=== PATIENT | female | born 1965 | race Caucasian/White ===

== ENCOUNTER 2022-01-12 15:12 | Outpatient (CLI) | payer MEDICAID, SELFPAY ==
[2022-01-12 21:18] LABS: Chloride* 102 mmol/L (96-114); Potassium* 3.9 mmol/L (3.6-5.1); Sodium* 139 mmol/L (135-149)
[2022-01-12 21:21] LABS: Blood Urea Nitrogen* 15 mg/dL (7-30); Carbon Dioxide* 32 mmol/L (20-32); Creatinine* 0.9 mg/dL (0.5-1.5); Estimated Glomerular Filt Rate 76 ml/min; Glucose* 97 mg/dL (60-115)
[2022-01-12 21:22] LABS: Calcium* 8.7 mg/dL (8.4-10.6)
== END 2022-01-12 15:13 | disposition home or self-care (01) ==
LOC: LKVREF 15:14
PROVIDERS: PCP Physician Assistant Medical; Visit Provider Physician Assistant Medical
DX: Z01.818 Encounter for other preprocedural examination (principal)
CPT/HCPCS: 80048

== ENCOUNTER 2022-11-30 14:14 | Outpatient (CLI) | payer MEDICARE, MEDICAID, SELFPAY | END 2022-11-30 14:15 | disposition home or self-care (01) | PROVIDERS: PCP Physician Assistant Medical; Visit Provider Registered Nurse | DX: M25.531 Pain in right wrist (principal) | CPT/HCPCS: 84550 ==

== ENCOUNTER 2022-12-07 13:49 | Outpatient (CLI) | payer MEDICARE, MEDICAID, SELFPAY | END 2022-12-07 13:50 | disposition home or self-care (01) | PROVIDERS: PCP Physician Assistant Medical; Visit Provider Physician Assistant Medical | DX: I10 Essential (primary) hypertension (principal); M25.50 Pain in unspecified joint | CPT/HCPCS: 86039; 86140; 86200; 86431; 86617 ==

== ENCOUNTER 2023-04-16 14:24 | Outpatient (CLI) | payer MEDICARE, MEDICAID, SELFPAY ==
--- NOTE | 2023-04-16 14:30 | MR_ITS ---
[address] [address] Phone:?[phone] Fax:?[phone] Referring Physician Information: Maximino Mccrary [address] [facility] [address] Phone:?[phone] Fax:?[phone] Patient:Nani Pickard D.O.B:?1965 Sex:?Female Phone:?[phone] [facility] MRN:?[id number] Exam Date:?04/16/2023 EXAM: MRI of the LEFT SHOULDER, without contrast CLINICAL HISTORY: Chronic left shoulder pain. COMPARISONS: MRI 09/23/2020. MRI 03/05/2022. Plain radiographs 08/08/2020. TECHNICAL: MRI sequences of the left shoulder: Axials: PD, T2 Coronals: PD, STIR, T2 Sagittals: PD, T2 SEDATION: None CONTRAST: None FINDINGS: Bones: No fracture or suspicious bone marrow signal abnormality. Coracoacromial arch: Acromion: No os acromiale. Type I-II acromion. Acromiohumeral space: The bony distance is unremarkable. Acromioclavicular joint: Mild to moderate degenerative changes, similar compared to previous MRI 03/05/2022. Coracoclavicular ligament: The coracoclavicular ligament is intact. Rotator cuff muscles/tendons: Supraspinatus: Mild tendinopathy, slightly progressed compared to previous MRI 03/05/2022. Infraspinatus: The infraspinatus tendon and muscle are intact. Teres minor: The teres minor tendon and muscle are intact. Subscapularis: The subscapularis tendon and muscle are intact. Labrum and glenohumeral joint: No evidence of labral tear although evaluation is suboptimal because of nonarthrogram technique. Physiologic amount of joint fluid. No discrete chondral defect or subchondral bone marrow edema/cystic change is seen. No convincing evidence of capsular edema or thickening although evaluation is suboptimal because of lack of joint distention. Proximal biceps tendon, long head and short heads: The long and short heads of the proximal biceps tendon are intact. Bursae: Subacromial/subdeltoid: Slight bursitis. Subcoracoid: No convincing subcoracoid bursal thickening/bursitis. IMPRESSION: 1. Slight subacromial/subdeltoid bursitis, not seen on previous MRI 03/05/2022. 2. Mild supraspinatus tendinopathy, similar compared to previous MRI 03/05/2022. 3. Mild to moderate acromioclavicular joint osteoarthritis, similar compared to previous MRI 03/05/2022. 4. No discrete rotator cuff tendon tear, rotator cuff muscular atrophy, or biceps pathology of the left shoulder. RCB Electronically signed on 04/17/2023 11:21:00 AM by Owen Jaimes M.D.
== END 2023-04-16 14:25 | disposition home or self-care (01) ==
LOC: MRI 14:25
PROVIDERS: PCP Physician Assistant Medical; Visit Provider Physician Assistant Medical
DX: M25.512 Pain in left shoulder (principal); M75.52 Bursitis of left shoulder; M19.012 Primary osteoarthritis, left shoulder
CPT/HCPCS: 73221

== ENCOUNTER 2023-10-11 12:27 | Outpatient (CLI) | payer MEDICARE, MEDICAID, SELFPAY | END 2023-10-11 12:28 | disposition home or self-care (01) | PROVIDERS: PCP Physician Assistant Medical; Visit Provider Physician Assistant Medical | DX: Z00.00 Encounter for general adult medical examination without abnormal findings (principal); R53.83 Other fatigue; F32.A Depression, unspecified; R63.5 Abnormal weight gain; G47.9 Sleep disorder, unspecified; M54.9 Dorsalgia, unspecified; Z11.59 Encounter for screening for other viral diseases; Z13.1 Encounter for screening for diabetes mellitus; Z13.6 Encounter for screening for cardiovascular disorders; Z13.0 Encounter for screening for diseases of the blood and blood-forming organs and certain disorders involving the immune mechanism; Z11.3 Encounter for screening for infections with a predominantly sexual mode of transmission | CPT/HCPCS: 80053; 80061; 82670; 83001; 84403; 84443; 86703; 86803 ==

== ENCOUNTER 2023-11-24 15:37 | Outpatient (CLI) | payer MEDICARE, MEDICAID, SELFPAY ==
[2023-11-24 20:03] LABS: Chlamydia DNA Amplified* NOT DETECTED (No Detected); GC DNA Amplified* NOT DETECTED (No Detected)
== END 2023-11-24 15:38 | disposition home or self-care (01) ==
LOC: NFLDREF 15:38
PROVIDERS: PCP Physician Assistant Medical; Visit Provider Obstetrics & Gynecology
DX: N89.8 Other specified noninflammatory disorders of vagina (principal)
CPT/HCPCS: 87491; 87591

== ENCOUNTER 2023-12-20 08:41 | Outpatient (CLI) | payer MEDICARE, MEDICAID, SELFPAY ==
--- NOTE | 2023-12-20 10:15 | W.ANESCHARGE ---
Anesthesia Charges Start Date/Time Anesthesia Start Date: 12/20/23 Anesthesia Start Time: 09:43 Stop Date/Time Anesthesia Stop Date: 12/20/23 Anesthesia Stop Time: 10:12
== END 2023-12-20 08:42 | disposition home or self-care (01) ==
LOC: OP CLINIC 08:41
PROVIDERS: PCP Physician Assistant Medical; Visit Provider Surgery
DX: K63.5 Polyp of colon (principal); Z86.010 Personal history of colon polyps
CPT/HCPCS: 00811; 45385; 88305; J2704

== ENCOUNTER 2024-05-18 11:16 | Outpatient (CLI) | payer MEDICARE, MEDICAID, SELFPAY | END 2024-05-18 11:17 | disposition home or self-care (01) | LOC: LKVREF 11:17 | PROVIDERS: PCP Physician Assistant Medical; Visit Provider Physician Assistant Medical | DX: E55.9 Vitamin D deficiency, unspecified (principal) | CPT/HCPCS: 82306 ==

== ENCOUNTER 2024-09-19 17:27 | Outpatient (CLI) | payer MEDICARE, MEDICAID, SELFPAY ==
--- NOTE | 2024-09-19 17:30 | CRLHL7_ITS ---
For Patients: As a result of the Century Cures Act, medical imaging exams and procedure reports are released immediately into your electronic medical record. You may view this report before your referring provider. If you have questions, please contact your health care provider. INDICATION: Right upper quadrant abdomen pain. TECHNIQUE: Ultrasound abdomen limited. Sonographic images of the right upper quadrant were obtained using juarez-scale and color Doppler images. COMPARISON: None. FINDINGS: Liver: Increased echogenicity of the liver. Mild coarse echotexture. Hypoechoic cyst in the right hepatic lobe measuring 1.4 x 1.7 x 1.3 centimeters. Hypoechoic cyst in the left hepatic lobe measuring 0.9 x 0.7 x 1.0 centimeters.. No suspicious masses. No intrahepatic biliary dilatation. Gallbladder: No stones or sludge. Normal wall thickness. No pericholecystic fluid. Common bile duct: 4 mm. Pancreas: Unremarkable. Right kidney: Normal in size. Normal echotexture and cortex. No suspicious masses, stones, or hydronephrosis. Vasculature: Proximal abdominal aorta and IVC are unremarkable. IMPRESSION: 1. Unremarkable gallbladder. 2. Hepatic steatosis. Simple appearing cysts in the right and left hepatic lobes. Dictated by King Coleman MD @ 09/19/2024 7:15:07 PM (Electronically Signed)
== END 2024-09-19 17:28 | disposition home or self-care (01) ==
LOC: US 17:28
PROVIDERS: PCP Physician Assistant Medical
DX: R10.11 Right upper quadrant pain (principal); K76.0 Fatty (change of) liver, not elsewhere classified; K76.89 Other specified diseases of liver
CPT/HCPCS: 76705; 80053; 83690

== ENCOUNTER 2024-10-30 17:38 | Outpatient (CLI) | payer MEDICARE, MEDICAID, SELFPAY | END 2024-10-30 17:39 | disposition home or self-care (01) | PROVIDERS: PCP Physician Assistant Medical; Visit Provider Physician Assistant Medical | DX: R10.13 Epigastric pain (principal) | CPT/HCPCS: 80053; 83690 ==

== ENCOUNTER 2024-10-31 15:40 | Outpatient (CLI) | payer MEDICARE, MEDICAID, SELFPAY | END 2024-10-31 15:41 | disposition home or self-care (01) | LOC: NFLDREF 11-03 07:18 | PROVIDERS: PCP Physician Assistant Medical; Referring Provider Physician Assistant Medical; Visit Provider Physician Assistant Medical | DX: R10.13 Epigastric pain (principal) | CPT/HCPCS: 87338 ==

== ENCOUNTER 2024-11-14 10:47 | Outpatient (CLI) | payer MEDICARE, MEDICAID, SELFPAY ==
--- NOTE | 2024-11-14 11:39 | P.ANES_ITS ---
Anesthesia Charges Start Date/Time Anesthesia Start Date: 11/14/24 Anesthesia Start Time: 11:15 Stop Date/Time Anesthesia Stop Date: 11/14/24 Anesthesia Stop Time: 11:35 Coding CPT Codes CPT Codes: ANES UPR GI NDSC PX NOS - 70342 ([id number]) P2 - PATIENT W/MILD SYST DISEASE, QK - CYTOLOGY MANAGER 2-4 CNCRNT ANES PROC, QX - JOINT MACHINE OPERATOR SVC W/ MD MED DIRECTION
--- NOTE | 2024-11-14 11:39 | W.ANESCHARGE ---
Anesthesia Charges Start Date/Time Anesthesia Start Date: 11/14/24 Anesthesia Start Time: 11:15 Stop Date/Time Anesthesia Stop Date: 11/14/24 Anesthesia Stop Time: 11:35 Coding CPT Codes CPT Codes: ANES UPR GI NDSC PX NOS - 70948 ([id number]) P2 - PATIENT W/MILD SYST DISEASE, QK - COLLEGE PRESIDENT 2-4 CNCRNT ANES PROC, QX - DRY CLEANING COUNTER CLERK SVC W/ MD MED DIRECTION
--- NOTE | 2024-11-14 12:19 | P.ANES_ITS ---
Anesthesia Charges Start Date/Time Anesthesia Start Date: 11/14/24 Anesthesia Start Time: 11:15 Stop Date/Time Anesthesia Stop Date: 11/14/24 Anesthesia Stop Time: 11:35 Coding CPT Codes CPT Codes: ANES UPR GI NDSC PX NOS - 46219 ([id number]) QK - BRICK EXTRUDER OPERATOR 2-4 CNCRNT ANES PROC, QX - SPIRAL WEAVER SVC W/ MD MED DIRECTION, P2 - PATIENT W/MILD SYST DISEASE
--- NOTE | 2024-11-14 12:19 | W.ANESCHARGE ---
Anesthesia Charges Start Date/Time Anesthesia Start Date: 11/14/24 Anesthesia Start Time: 11:15 Stop Date/Time Anesthesia Stop Date: 11/14/24 Anesthesia Stop Time: 11:35 Coding CPT Codes CPT Codes: ANES UPR GI NDSC PX NOS - 17759 ([id number]) QK - RIBBON CLEANER 2-4 CNCRNT ANES PROC, QX - SECTION PLOTTER OPERATOR SVC W/ MD MED DIRECTION, P2 - PATIENT W/MILD SYST DISEASE
== END 2024-11-14 10:48 | disposition home or self-care (01) ==
LOC: OP CLINIC 10:48
PROVIDERS: PCP Physician Assistant Medical; Visit Provider Surgery
DX: R10.13 Epigastric pain (principal); K31.7 Polyp of stomach and duodenum; K31.89 Other diseases of stomach and duodenum
CPT/HCPCS: 00731; 43239; 88305; J2704; J3490

== ENCOUNTER 2025-03-19 10:35 | Outpatient (CLI) | payer MEDICARE, MEDICAID, SELFPAY ==
--- NOTE | 2025-03-19 10:45 | CRLHL7_ITS ---
For Patients: As a result of the Century Cures Act, medical imaging exams and procedure reports are released immediately into your electronic medical record. You may view this report before your referring provider. If you have questions, please contact your health care provider. DIGITAL DIAGNOSTIC BILATERAL MAMMOGRAM USING TOMOSYNTHESIS AND COMPUTER-AIDED DETECTION BILATERAL BREAST ULTRASOUND CLINICAL HISTORY: BILATERAL breast pain. COMPARISON: 03/04/2020, 11/25/2012. TECHNIQUE: Digital BILATERAL mammogram in four projections with computer-aided detection. Tomosynthesis was used in this interpretation. Real-time ultrasound imaging of BILATERAL breast with imaging documentation. BREAST COMPOSITION: The breasts are heterogeneously dense, which may obscure small masses. FINDINGS: 3D CC/MLO BILATERAL mammogram images submitted. Benign calcifications are present bilaterally. No suspicious masses or architectural distortion. No adenopathy. Targeted RIGHT breast ultrasound performed at 9 o`clock 5 cm from the nipple and 6 o`clock 5 cm from the nipple. Normal fibroglandular tissue is present. No fibrocystic change. No solid mass. No suspicious findings. Targeted LEFT breast ultrasound 6 o`clock 5 cm from the nipple performed. Normal fibroglandular tissue is present. No solid mass or fibrocystic change. No suspicious findings. IMPRESSION: No evidence of malignancy. RECOMMENDATIONS: Routine screening mammography. A lay language report of this examination will be provided to the patient. BI-RADS Category 2: Benign Dictated by Per Quarles MD @ 03/19/2025 12:56:42 PM [email or web address]/Dictated by: Per Quarles MD @ 03/19/2025 12:56:00 PM (Electronically Signed)
--- NOTE | 2025-03-19 11:15 | CRLHL7_ITS ---
For Patients: As a result of the Cures Act, medical imaging exams and procedure reports are released immediately into your electronic medical record. You may view this report before your referring provider. If you have questions, please contact your health care provider. SEE DIGITAL DIAGNOSTIC BILATERAL MAMMOGRAM PERFORMED SAME DAY CRL:[email or web address] [email or web address]/Dictated by: Per Quarles MD @ 03/19/2025 12:54:00 PM (Electronically Signed)
== END 2025-03-19 10:36 | disposition home or self-care (01) ==
LOC: MAMMO 10:36
PROVIDERS: PCP Physician Assistant Medical; Visit Provider Physician Assistant Medical
DX: N64.4 Mastodynia (principal); R92.333 Mammographic heterogeneous density, bilateral breasts
CPT/HCPCS: 76642; 77066; G0279